=== PATIENT | female | born 1955 | race Caucasian/White ===

== ENCOUNTER 2020-06-27 12:01 | Emergency (ER) | payer OTHER ==
[2020-06-27 12:10] VITALS: BMI 53.1
[2020-06-27 13:12] LABS: BASO % 0.7 % (0-2.0); EOS % 1.5 % (0-4.5); HEMOGLOBIN 10.2 GM/dL (10.7-15.3); LYMPH % 22.8 % (8-40); MCHC 31.7 g/dl (32.0-36.0); MEAN CELL VOLUME 62.1 fl (80-96); MEAN PLT VOLUME 9.6 fl (7.5-11.1); MONO % 9.6 % (3.8-10.2); NEUT % 65.4 % (42.8-82.8); PLATELET COUNT 99 K/MM3 (134-434); RBC 5.15 M/mm3 (3.60-5.2); RDW 16.4 % (11.6-15.6); WHITE BLOOD COUNT 4.3 K/mm3 (4.0-10.0)
[2020-06-27 13:21] LABS: MCH 19.7 pg (25.7-33.7)
[2020-06-27 13:24] LABS: ALBUMIN 3.2 g/dl (3.4-5.0); BLOOD UREA NITROGEN 31.9 mg/dL (7-18); CALCIUM 8.6 mg/dL (8.5-10.1)
[2020-06-27 13:27] LABS: CREATININE 1.5 mg/dL (0.55-1.3)
[2020-06-27 13:28] LABS: BILIRUBIN,TOTAL 0.4 mg/dL (0.2-1); TOT PROT 6.3 g/dl (6.4-8.2)
[2020-06-27 14:49] LABS: ANISOCYTOSIS 2+; MACROCYTOSIS 0; OVALOCYTE 1+; PLATELET ESTIMATE DECREASED
[2020-06-27 18:15] VITALS: BP 135/78; PULSE 81; TEMP 98.2
== END 2020-06-27 18:15 | disposition home or self-care (01) ==
LOC: JER 12:01
DX: U07.1 COVID-19 (principal)
CPT/HCPCS: 36415; 71046-TC-FY; 80053; 85025; 93005; 93010; 99285-25; M0239; Q0239